=== PATIENT | female | born 1990 | race African-American/Black ===

== ENCOUNTER 2016-08-26 01:10 | Emergency (ER) | payer OTHER ==
[2016-08-26] MEDS ORDERED: NORMAL SALINE 1000 ML 1,000 ML IV ONE (01:32)
[2016-08-26] MEDS ORDERED: ONDANSETRON HCL INJ/PF 4 MG/2 ML SDV IV ONE (01:33)
[2016-08-26] MEDS ORDERED: LOPERAMIDE HCL 2 MG CAPSULE PO ONE (01:33)
--- NOTE | 2016-08-26 02:13 | ER Document Report ---
ED General - General Chief Complaint: Nausea/Vomiting/Diarrhea Stated Complaint: VOMITING AND DIARRHEA Time Seen by Provider: 08/26/16 01:28 Notes: Patient is a 26-year-old female with morbid obesity weighing 186 kg who presents with 3 days of nausea, vomiting, diarrhea and intermittent abdominal cramping. Describes the cramping is a mild, dull, diffuse abdominal pain. Nothing improves or worsens this pain. States is more prominent prior to episodes of diarrhea. She has not done anything to treat her symptoms. She has not seen her primary care doctor regarding today's concerns. She has intermittently been able tolerate fluids in between her episodes of vomiting. No known sick contacts. She is uncertain if she has had similar symptoms in the past. Denies any history of abdominal surgeries TRAVEL OUTSIDE OF THE [place] IN LAST 30 DAYS: No Past Medical History - General Information source: Patient - Social History Smoking Status: Never Smoker Frequency of alcohol use: None Drug Abuse: None Lives with: Spouse/Significant other Family History: Reviewed & Not Pertinent Renal/ Medical History: Denies: Hx Peritoneal Dialysis Review of Systems - Review of Systems Notes: Constitutional: Negative for fever. HENT: Negative for sore throat. Eyes: Negative for visual changes. Cardiovascular: Negative for chest pain. Respiratory: Negative for shortness of breath. Gastrointestinal: Positive for abdominal pain vomiting and diarrhea Genitourinary: Negative for dysuria. Musculoskeletal: Negative for back pain. Skin: Negative for rash. Neurological: Negative for headaches, weakness or numbness. 10 point ROS negative except as marked above and in HPI. Physical Exam - Vital signs Vitals: Temp Pulse Resp BP Pulse Ox 98.6 F 115 H 20 153/94 H 96 08/26/16 01:20 08/26/16 01:20 08/26/16 01:20 08/26/16 01:20 08/26/16 01:20 Interpretation: Hypertensive, Tachycardic Notes: PHYSICAL EXAMINATION: GENERAL: Morbidly obese female in no acute distress. HEAD: Atraumatic, normocephalic. EYES: Pupils equal round and reactive to light, extraocular movements intact, sclera anicteric, conjunctiva are normal. ENT: nares patent, oropharynx clear without exudates. Moist mucous membranes. NECK: Normal range of motion, supple without lymphadenopathy LUNGS: Breath sounds clear to auscultation bilaterally and equal. No wheezes rales or rhonchi. HEART: Regular rate and rhythm without murmurs ABDOMEN: Soft, nontender, normoactive bowel sounds. No guarding, no rebound. No masses appreciated. EXTREMITIES: Normal range of motion, no pitting or edema. No cyanosis. NEUROLOGICAL: No focal neurological deficits. Moves all extremities spontaneously and on command. PSYCH: Normal mood, normal affect. SKIN: Warm, Dry, normal turgor, no rashes or lesions noted. Course - Re-evaluation Re-evalutation: 08/26/16 02:07 Presentation of an overall well-appearing patient in no acute distress with complaints of nausea, vomiting, diarrhea. Of note patient is 186 kg. Presentation is overall consistent with likely viral gastroenteritis. Patient has no abdominal tenderness on exam and specifically no tenderness in the RLQ, LLQ, RUQ. Overall well hydrated on exam. Able to tolerate oral intake here in the emergency department. Low clinical suspicion for any acute life-threatening etiology based on exam and history including acute cholecystitis, SBO, appendicitis, nephrolithiasis, or pylonephritis. BMP without evidence of significant dehydration. At this time will discharge with return precautions and follow-up recommendations. Verbal discharge instructions given a the bedside and opportunity for questions given. Medication warnings reviewed. Patient is in agreement with this plan and has verbalized understanding of return precautions and the need for primary care follow-up in the next 24-72 hours. - Vital Signs Vital signs: Temp Pulse Resp BP Pulse Ox 98.6 F 115 H 20 153/94 H 96 08/26/16 01:20 08/26/16 01:20 08/26/16 01:20 08/26/16 01:20 08/26/16 01:20 Discharge - Discharge Clinical Impression: Vomiting and diarrhea, Abdominal cramping Condition: Good Disposition: HOME, SELF-CARE Additional Instructions: Your symptoms are likely due to a viral illness and should resolve in the next several days. You can take [id number] loperamide also known as Imodium as needed for diarrhea per box instructions. Continue to stay hydrated with plenty of solution such as Gatorade or Pedialyte. You are being prescribed Zofran to take as needed for nausea and vomiting. Please return if you develop severe abdominal pain, pass out, become unable to tolerate any oral fluids for 12 more hours, or any other symptoms that are concerning to you.
[2016-08-26 02:28] LABS: ANION GAP 10 (5-19); BLOOD UREA NITROGEN 7 mg/dL (7-20); CALCIUM 9.1 mg/dL (8.4-10.2); CARBON DIOXIDE 24 mmol/L (22-30); CHLORIDE 108 mmol/L (98-107); CREATININE RESULT 0.69 mg/dL (0.52-1.25); GLUCOSE 109 mg/dL (75-110); POTASSIUM 4.1 mmol/L (3.6-5.0); SODIUM 142.1 mmol/L (137-145)
[2016-08-26] MEDS ORDERED: KETOROLAC TROMETHAMINE INJ/PF 30 MG/1 ML SDV IV ONE (02:42)
[2016-08-26 03:21] VITALS: BP 132/77
== END 2016-08-26 03:20 | disposition home or self-care (01) ==
LOC: ER 01:10
DX: R11.2 Nausea with vomiting, unspecified (principal); R19.7 Diarrhea, unspecified; R10.84 Generalized abdominal pain; E66.01 Morbid (severe) obesity due to excess calories; Z68.44 Body mass index [BMI] 60.0-69.9, adult
CPT/HCPCS: 99284; 96361; 96374; 36415; 84703; 80048; J2405; J7030

== ENCOUNTER 2019-10-01 02:04 | Emergency (ER) | payer OTHER ==
[2019-10-01] MEDS ORDERED: METHYLPREDNISOLONE INJ 125 MG/2 ML SDV ONE (02:09)
[2019-10-01] MEDS ORDERED: FAMOTIDINE INJ/PF 20 MG/2 ML SDV IV ONE ×2 (02:09→02:15)
[2019-10-01] MEDS ORDERED: DIPHENHYDRAMINE HCL 50 MG/ML VIAL ONE (02:09)
[2019-10-01] MEDS ORDERED: METHYLPREDNISOLONE INJ 125 MG/2 ML SDV IV ONE (02:15)
[2019-10-01] MEDS ORDERED: DIPHENHYDRAMINE HCL 50 MG/ML VIAL IV ONE (02:15)
--- NOTE | 2019-10-01 02:48 | ER Document Report ---
Entered by QUINTEN NORWOOD SCRIBE 10/01/19 0215 Acting as scribe for:LISETTE GANDHI IV, MD ED Allergic Reaction - General Chief Complaint: Allergic Reaction Stated Complaint: POSSIBLE ALLERGIC REACTION Mode of Arrival: Wheelchair Information source: Patient Notes: This 29 year old female patient presents to the ED today with complaints of an allergic reaction that started around 0000 hours today. Patient states that she is allergic to dust, but denies any allergies to medications. She reports bilateral facial swelling, stating that it has become progressively worse since onset. She also notes mild difficulty swallowing and itchy eyes that has since resolved. Denies shortness of breath. She states that she took a couple of Children's Benadryl about x1 hour prior to arrival. She admits that she has an Epi-pen, but states that she couldn't find it. TRAVEL OUTSIDE OF THE [place] IN LAST 30 DAYS: No - Related Data Allergies/Adverse Reactions: house dust Allergy (Verified 10/01/19 02:26) Past Medical History - General Information source: Patient - Social History Smoking Status: Never Smoker Cigarette use (# per day): No Chew tobacco use (# tins/day): No Smoking Education Provided: No Family History: Reviewed & Not Pertinent Patient has suicidal ideation: No Patient has homicidal ideation: No Review of Systems - Review of Systems Constitutional: No symptoms reported EENT: See HPI, Difficulty swallowing, Other - Itchy eyes Cardiovascular: No symptoms reported Respiratory: See HPI. denies: Short of breath Gastrointestinal: No symptoms reported Genitourinary: No symptoms reported Female Genitourinary: No symptoms reported Musculoskeletal: See HPI, Other - Facial swelling Skin: No symptoms reported Hematologic/Lymphatic: No symptoms reported Neurological/Psychological: No symptoms reported -: Yes All other systems reviewed and negative Physical Exam - Vital signs Vitals: Temp 98.0 F 10/01/19 02:04 - General General appearance: Alert In distress: None - HEENT Head: Normocephalic, Atraumatic Eyes: Other - Eyelids are edematous bilaterally Conjunctiva: Purulent discharge - Purulent appearing discharge noted to medial canthi bilaterally - Respiratory Respiratory status: No respiratory distress Chest status: Nontender Breath sounds: Normal Chest palpation: Normal - Cardiovascular Rhythm: Regular, Tachycardia Heart sounds: Normal auscultation Murmur: No Friction rub: No Gallop: None auscultated - Abdominal Inspection: Morbidly Obese Distension: No distension Bowel sounds: Normal Tenderness: Nontender - Abdomen soft Organomegaly: No organomegaly - Back Back: Normal, Nontender - Extremities General upper extremity: Normal inspection General lower extremity: Normal inspection - Neurological Neuro grossly intact: Yes Orientation: AAOx4 - Psychological Associated symptoms: Normal affect, Normal mood - Skin Skin Temperature: Warm Skin Moisture: Dry Skin Color: Normal Course - Re-evaluation Re-evalutation: 10/01/19 04:40 Patient states she is feeling better at this time. Patient denies difficulty swallowing, shortness of breath. Patient was instructed on diagnoses, plan of care. All questions were answered prior to discharge. Emergency signs and symptoms, reasons to return to the emergency department discussed with patient. - Vital Signs Vital signs: Temp Pulse Resp BP Pulse Ox 98.0 F 17 119/68 98 10/01/19 02:11 10/01/19 03:30 10/01/19 03:30 10/01/19 03:30 Discharge - Discharge Clinical Impression: Acute allergic reaction Qualifiers: Encounter type: initial encounter Qualified Code(s): T78.40XA - Allergy, unspecified, initial encounter Conjunctivitis Qualifiers: Conjunctivitis type: acute Acute conjunctivitis type: unspecified Laterality: bilateral Qualified Code(s): H10.33 - Unspecified acute conjunctivitis, bilateral Condition: Good Disposition: HOME, SELF-CARE Additional Instructions: Return to the Emergency Department without delay if any worse. HOME CARE INSTRUCTIONS & INFORMATION: Thank you for choosing us for your medical needs. We hope you're satisfied with the care you received. After you leave, you must properly care for your problem and, at the same time, observe its progress. Any condition can change. Some illnesses can change rapidly over hours or days. If your condition worsens, return to the Emergency Department or see your physician promptly. ABOUT YOUR X-RAYS AND EKG'S: If you had an EKG or X-rays taken, they have been read by the Emergency Physician. The X-rays and EKG's will also be read by a Radiologist or [employer] Judge within 24 hours. If discrepancies are noted, you will be notified by telephone. Please be certain the ED has a correct telephone number & address where you can be reached. Also, realize that some fractures or abnormalities do not show up on initial X-rays. If your symptoms continue, see your physician. ABOUT YOUR LABORATORY TEST: If you had laboratory tests, the results have been reviewed by the Emergency Physician. Some test results (for example cultures) may not be available for several days. You will be contacted if any test result shows you need additional treatment. Please be certain the ED has a correct [facility] number and address where you can be reached. ABOUT YOUR MEDICATIONS: You will receive instructions on how to take your medicine on the prescription label you receive. Additional information may be provided by the Pharmacy. If you have questions afterwards, call the ED for clarification or further instructions. Some prescribed medications may cause drowsiness. Do not perform tasks such as driving a car or operating machinery without consulting your Pharmacist. If you feel you need a refill of pain medication, your condition will need re-evaluation. Please do not call for a refill of any medication. ABOUT YOUR SIGNATURE: Signature of this document acknowledges to followin. Understanding that you received emergency treatment and that you may be released before al medical problems are known or treated. Please be certain the ED has a correct phone number & address where you can be reached. 2. Acknowledgement that you will arrange for follow-up care as recommended. 3. Authorization for the Emergency Physician to provide information to your follow-up Physician in order to maximize your care. AT ANY TIME, IF YOUR SYMPTOMS CHANGE SIGNIFICANTLY OR WORSEN OR YOU DEVELOP NEW SYMPTOMS, RETURN TO THE EMERGENCY DEPARTMENT IMMEDIATELY FOR RE-EVALUATION. OUR GOAL IS TO PROVIDE EXCELLENT MEDICAL CARE! WE HOPE THAT WE HAVE MET YOUR EXPECTATIONS DURING YOUR EMERGENCY DEPARTMENT VISIT AND THAT YOU FEEL YOU HAVE RECEIVED EXCELLENT CARE! Acute Allergic Reaction Your symptoms are due to an allergic reaction. Allergy can cause hives, swelling of the hands, feet, and face, hoarseness, and difficulty swallowing or breathing. It may be due to exposure to medication, animal dander, foods, infection, or insect bites. Medication is a common cause, even when prior use of this same medication caused no problems. Acute treatment may include adrenalin and antihistamines. Usually, the specific allergic agent can't be identified unless repeated episodes occur. Home treatment includes the following: (1) Stop any suspicious medications. This will be discussed with you. (2) Oral antihistamines for the next four to five days. Example, diphenhydramine (Benadryl) every four hours. (3) You may also use cimetidine (Tagamet), or famotidine (Pepcid) every four hours if diphenhydramine is not controlling itching and hives. (4) Avoid aspirin until the hives completely disappear. (5) Avoid hot baths or showers until the hives are completely gone. Call the doctor if faintness, difficulty swallowing, tightness in the chest, or wheezing occurs. Conjunctivitis You have an infection in your eye, commonly known as "pink eye." Conjunctivitis causes redness, mild discomfort, itching, and mattering on the eyelids. It is very contagious, so you must be careful to wash your hands after touching your face so you don't pass the infection on to others. Conjunctivitis is caused by both viruses and bacteria. It usually responds quickly to treatment with antibiotic drops. These should be placed in the eye as prescribed (usually every three to four hours while you're awake). If you wear contact lenses, don't put them in your eyes until the infection is cleared and you are no longer using the drops (unless your doctor advises you otherwise). Should you develop increasing eye pain, severe swelling, decreased vision, or fail to improve as expected, please return for re-examination. Prescriptions: Epinephrine [Epipen 2-Quinn] 0.3 mg IM ONCE PRN #1 packet PRN Reason: Allergic reaction Moxifloxacin HCl [Vigamox 0.5% Oph Soln 3 ml] 1 drop OU TID 7 Days #1 bottle Referrals: AZEEM KO MD [HONORARY] - Follow up as needed I personally performed the services described in the documentation, reviewed and edited the documentation which was dictated to the scribe in my presence, and it accurately records my words and actions.
[2019-10-01 04:53] VITALS: BP 90/78
== END 2019-10-01 04:59 | disposition home or self-care (01) ==
LOC: ER 02:04
DX: T78.40XA Allergy, unspecified, initial encounter (principal); H10.33 Unspecified acute conjunctivitis, bilateral; R22.0 Localized swelling, mass and lump, head; R13.10 Dysphagia, unspecified
CPT/HCPCS: 99283; 96374; 96375; J1200; J2930; S0028